=== PATIENT | male | born 1980 | race Caucasian/White ===

== ENCOUNTER 2019-10-10 21:08 | Inpatient (IN) ==
[2019-10-10] MEDS ORDERED: SODIUM CHLORIDE 0.9% 1000ML 1,000 ML IV ONE (21:17)
[2019-10-10] MEDS ORDERED: ONDANSETRON INJ 2 MG/ML 2 ML VIAL IV STA (21:17)
[2019-10-10] MEDS ORDERED: KETOROLAC TROMETHAMINE 15 MG/ML VIAL IV STA ×2 (21:17→23:44)
--- NOTE | 2019-10-10 21:27 | Emergency Department Note ---
History of Present Illness General Chief Complaint: Abdominal Pain Stated Complaint: ABD PAIN, FEVER Time Seen by Provider: 10/10/19 21:17 History of Present Illness Provider Complaint: abdominal pain Onset (ago): 3 day(s) Pain Consistency: constant Location: LLQ, RLQ and suprapubic Severity: moderate Maximum Pain Intensity: 5 Quality: + cramping, + stabbing, + aching, + fullness and + sharp Relieved By: + nothing Exacerbated By: + other (Coughing) Associated Symptoms: + fever (T-max one 1.7) and + constipation; no nausea, no vomiting, no dysuria, no hematemesis, no hematochezia, no melena and no hematuria Home Medications Home Medications Medication Instructions Recorded Confirmed Type ibuprofen [Motrin IB] 400 mg PO Q6H PRN 10/10/19 10/10/19 History Allergies Allergy/AdvReac Type Severity Reaction Status Date / Time No Known Allergies Allergy Unverified 10/10/19 23:07 Past Med/Surg History Medical History (Updated 10/10/19 @ 23:35 by Dereck Daniel) Kidney stone No pertinent family history Surgical History (Updated 10/10/19 @ 21:26 by Dereck Daniel) S/P hernia surgery Social History Preferred Language: Nigerien Feels Safe at Home: Yes Smoking Status: Current every day smoker Review of Systems A total of 10 systems reviewed and were otherwise negative Physical Exam Vital Signs: Vital Signs - 24 hr 10/10/19 21:11 10/10/19 22:43 Temperature 37.4 C Temperature Source Oral Pulse Rate 128 H Pulse Rate [Left F baldo] 95 H Respiratory Rate 18 20 Respiratory Effort / Characteristics Non-Labored Respiratory Depth Normal Respiratory Patter n Regular Blood Pressure 118/80 Blood Pressure [Le ft Arm] 126/75 Blood Pressure Hanh n 92 Blood Pressure Hanh n [Left Arm] 92 Pulse Oximetry 95 93 Oxygen Delivery Me thod Room Air Sepsis Recent Feve r Within 48 Hours No Sepsis Action Take n by Nursing No Action Required Physical Exam: Physical Exam GENERAL: He is oriented to person, place, and time. He appears well-developed and well-nourished. He does not appear distressed. HENT: Exam performed. - Head: Normocephalic and atraumatic. - Right Ear: External ear normal. No mastoid tenderness. - Left Ear: External ear normal. No mastoid tenderness. - Mouth/Throat: The oropharynx is clear and moist. No trismus in the jaw. No dental abscesses or uvula swelling. No oropharyngeal exudate or tonsillar abscesses. EYES: Conjunctivae and EOM are normal. Pupils are equal, round, and reactive to light. Right eye exhibits no discharge. Left eye exhibits no discharge. No scleral icterus. NECK: Normal range of motion. Neck supple. No JVD present. No spinous process tenderness present. No carotid bruit present. No rigidity. No tracheal deviation and normal range of motion present. No Brudzinski's sign and no Kernig's sign noted. CV: Normal rate, regular rhythm, normal heart sounds and intact distal pulses. There is no peripheral edema. Palpable radial pulses bue. PULM/CHEST: Effort normal and breath sounds normal. No respiratory distress. No stridor. He has no wheezes. He has no rales. - Chest Wall: He exhibits no tenderness. ABD: The abdomen is soft. Bowel sounds are normal. He has no distension. No mass is present. There is tenderness to palpation of the right lower quadrant. There is rebound, no guarding, no Farr's sign and tenderness at McBurney's point. Rovsig negative. MUSC/SKEL: Normal range of motion. There is no peripheral edema, tenderness or deformity. LYMPH: No cervical adenopathy. NEURO: He is alert and oriented to person, place, and time. He has normal strength. No cranial nerve deficit or sensory deficit. Coordination and gait normal. GCS eye subscore is 4. GCS verbal subscore is 5. GCS motor subscore is 6. Cerebellar tests wnl. SKIN: Skin is warm and dry. He is not diaphoretic. PSYCH: He has a normal mood and affect. Behavior is normal. Judgment and thought content normal. Course Course 2119: The patient was evaluated in room C8. A complete history and physical exam was performed. 2302: Vital signs stable. Labs show leukocytosis of 16.69. Imaging shows a normal appendix however it does show a perforated diverticulitis. Patient will be given Zosyn in the emergency department. General surgery was consulted. Spoke with Lorenzo Szymanski PA-C who states he will be down to evaluate the patient. 2334: Vital signs stable. Lorenzo Carrillo PA-C evaluated the patient for Dr. Wood. Surgery team is asking that the patient be admitted to medicine and they will be a consult. [facility]. Administered Medications Piperacillin Sod/Tazobactam Sod (Zosyn) 4.5 gm in 120 mls @ 30 mls/hr IV NOW ONE Stop: 10/11/19 02:56 Last Admin: 10/10/19 23:08 Dose: 30 mls/hr Documented by: [id number] Ioversol (Optiray 320 100ml) 94 ml IV ONCE PRN PRN Reason: Interaction Checking Stop: 10/14/19 22:21 Last Admin: 10/10/19 22:23 Dose: 94 ml Documented by: [id number] Discontinued Medications Sodium Chloride (Nss 1000ml) 1,000 mls @ 999 mls/hr IV .Q1H1M ONE Stop: 10/10/19 22:17 Last Infusion: 10/10/19 22:42 Dose: 0 mls/hr Documented by: [id number] Admin: 10/10/19 21:40 Dose: 999 mls/hr Documented by: [id number] Ketorolac Tromethamine (Toradol) 15 mg IV NOW STA Stop: 10/10/19 21:18 Last Admin: 10/10/19 21:40 Dose: 15 mg Documented by: [id number] Ondansetron HCl (Zofran) 4 mg IV NOW STA Stop: 10/10/19 21:18 Last Admin: 10/10/19 21:40 Dose: 4 mg Documented by: [id number] Medical Decision Making Laboratory Data Result diagrams: 10/10/19 21:33 10/10/19 21:33 Lab Results 10/10/19 10/10/19 Range/Units 21:33 21:33 WBC 16.69 H (4.8-10.8) K/uL RBC 5.09 (4.7-6.1) M/uL Hgb 15.7 (14.0-18.0) g/dL Hct 44.9 (42-52) % MCV 88.2 (80-100) fL MCH 30.8 (25-34) pg MCHC 35.0 (32-36) g/dL RDW Std Deviation 39.5 (36.4-46.3) fL RDW Coeff of Joseph 12.3 (11.5-14.5) % Plt Count 248 (130-400) K/uL MPV 9.6 (7.4-10.4) fL Immature Gran % (Auto) 0.3 % Neut % (Auto) 78.5 % Lymph % (Auto) 10.7 % [place] % (Auto) 9.6 % Eos % (Auto) 0.7 % Baso % (Auto) 0.2 % Immature Gran # (Auto) 0.05 H (0.00-0.02) K/uL Neut # (Auto) 13.10 H (1.4-6.5) K/uL Lymph # (Auto) 1.78 (1.2-3.4) K/uL [place] # (Auto) 1.60 H (0.11-0.59) K/uL Eos # (Auto) 0.12 (0-0.5) K/uL Baso # (Auto) 0.04 (0-0.2) K/uL Sodium 132 L (136-145) mmol/L Potassium 3.6 (3.5-5.1) mmol/L Chloride 100 (98-107) mmol/L Carbon Dioxide 21 (21-32) mmol/L Anion Gap 11.0 (3-11) BUN 13 (7-18) mg/dl Creatinine 1.08 (0.6-1.4) mg/dl Est Cr Clr Drug Dosing 107.7 ml/min Est GFR ( Amer) 100.4 Est GFR (Non-Af Amer) 86.6 BUN/Creatinine Ratio 11.8 (10-20) Glucose 107 H (70-99) mg/dl Calcium 9.6 (8.5-10.1) mg/dl Total Bilirubin 0.9 (0.2-1) mg/dl Direct Bilirubin 0.3 H (0-0.2) mg/dl AST 18 (15-37) U/L ALT 38 (12-78) U/L Alkaline Phosphatase 136 H (45-117) U/L Total Protein 8.6 H (6.4-8.2) gm/dl Albumin 3.9 (3.4-5.0) gm/dl Lipase 57 L (73-393) U/L Imaging Data Radiologist's Impression: CT OF THE ABDOMEN AND PELVIS WITH CONTRAST CLINICAL HISTORY: Right lower quadrant pain and fever. Constipation. Evaluate for acute appendicitis. COMPARISON STUDY: None. TECHNIQUE: Following IV administration of 94 mL of Optiray-320, axial images of the abdomen and pelvis were obtained from the lung bases to the proximal femurs. Images were reviewed in the axial, sagittal, and coronal planes. IV contrast was administered without complication. Automated exposure control was utilized for the study. A dose lowering technique was utilized adhering to the principles of ALARA. CT DOSE: 381.64 mGy.cm FINDINGS: Lung bases are unremarkable. No hepatic lesions are present. There is no biliary or pancreatic ductal dilatation. The spleen, adrenal glands and pancreas are normal. Note is made of a 1 cm hypodense lesion within the lower pole of the left kidney. This measures above water attenuation. There is also a 0.7 cm lesion within the lower pole of the right kidney on image 173 of 451. This is too small to characterize. There is no evidence for a bowel obstruction. Tiny appendicolith within the appendix is noted without evidence for acute appen dicitis. There is moderate wall thickening of the proximal sigmoid colon. An inflamed diverticulum is noted with moderate adjacent infiltration. Multiple locules of adjacent extraluminal gas are present. No fluid collection to suggest an abscess is present. Colonic diverticulosis is noted. Bowel is mildly fluid- filled. There are no suspicious osseous lesions. IMPRESSION: 1. Findings consistent with perforated acute sigmoid diverticulitis. Moderate inflammation with multiple locules of extraluminal gas consistent with a contained perforation. Moderate sigmoid colon wall thickening. 2. 1 cm hypodense lesion within the lower pole of the left kidney and a 0.7 cm lesion within the lower pole of the right kidney. These are too small to characterize on this exam. A follow-up MRI of the kidneys in 6 months is recommended. 3. No evidence for acute appendicitis. ACT 112: Negative or not required by law. Electronically signed by: Nick De Guzman M.D. 10/10/2019 10:54 PM Dictated: 10/10/192242 Transcribed: 10/10/192242 [facility] Narrative 2119: The patient was evaluated in room C8. A complete history and physical exam was performed. 2302: Vital signs stable. Labs show leukocytosis of 16.69. Imaging shows a normal appendix however it does show a perforated diverticulitis. Patient will be given Zosyn in the emergency department. General surgery was consulted. Spoke with Lorenzo Szymanski PA-C who states he will be down to evaluate the patient. 2335: Vital signs stable. Lorenzo Carrillo PA-C evaluated the patient for Dr. Ra baires. Surgery team is asking that the patient be admitted to medicine and they will be a consult. Dr. [facility] paged. Impression & Plan Diverticulitis of colon with perforation Discharge Plan Visit Data Chief Complaint: Abdominal Pain Stated Complaint: ABD PAIN, FEVER ED Provider: Dereck Danile Discharge Problem: Diverticulitis of colon with perforation Patient Disposition: Admitted As Inpatient Forms Stand Alone Forms: [facility] [employer] Prescriptions Prescriptions: No Action ibuprofen [Motrin IB] 200 mg Tablet 400 mg PO Q6H PRN (Reason: Pain) RF: 0 Referrals Referrals: PCP,NO [Primary Care Provider] - Discharge Problem: Diverticulitis of colon with perforation Qualifiers: Diverticulitis bleeding: unspecified bleeding status Qualified Code(s): K57.20 - Diverticulitis of large intestine with perforation and abscess without bleeding
[2019-10-10 21:43] LABS: Basophils # (auto) 0.04 K/uL (0-0.2); Basophils % (auto) 0.2 %; Eosinophils # (auto) 0.12 K/uL (0-0.5); Eosinophils % (auto) 0.7 %; Hematocrit (blood only) 44.9 % (42-52); Hemoglobin 15.7 g/dL (14.0-18.0); Immature Granulocytes # (auto) 0.05 K/uL (0.00-0.02); Immature Granulocytes % (auto) 0.3 %; Lymphocytes # (auto) 1.78 K/uL (1.2-3.4); Lymphocytes % (auto) 10.7 %; Mean Corpuscular Hemoglobin 30.8 pg (25-34); Mean Corpuscular Volume 88.2 fL (80-100); Mean Platelet Volume 9.6 fL (7.4-10.4); Monocytes % (auto) 9.6 %; Neutrophils % (auto) 78.5 %; Platelet Count 248 K/uL (130-400); RDW Coefficient of Variation 12.3 % (11.5-14.5); RDW Standard Deviation 39.5 fL (36.4-46.3); Red Blood Count 5.09 M/uL (4.7-6.1); White Blood Count 16.69 K/uL (4.8-10.8)
[2019-10-10 22:01] LABS: Albumin Level 3.9 gm/dl (3.4-5.0); BUN Creatinine Ratio 11.8 (10-20); Bilirubin Direct 0.3 mg/dl (0-0.2); Calcium 9.6 mg/dl (8.5-10.1); Creatinine Clr Calc Pharmacy 107.7 ml/min; Est GFR (African American) 100.4; Est GFR (Non-African American) 86.6; Potassium 3.6 mmol/L (3.5-5.1)
[2019-10-10 22:03] LABS: Bilirubin,Total 0.9 mg/dl (0.2-1); Total Protein 8.6 gm/dl (6.4-8.2)
[2019-10-10] MEDS ORDERED: IOVERSOL 100ml IV PRN (22:22)
--- NOTE | 2019-10-10 22:56 | CT Scan Report ---
CT OF THE ABDOMEN AND PELVIS WITH CONTRAST CLINICAL HISTORY: Right lower quadrant pain and fever. Constipation. Evaluate for acute appendicitis. COMPARISON STUDY: None. TECHNIQUE: Following IV administration of 94 mL of Optiray-320, axial images of the abdomen and pelvi s were obtained from the lung bases to the proximal femurs. Images were reviewed in the axial, sagitt al, and coronal planes. IV contrast was administered without complication. Automated exposure contro l was utilized for the study. A dose lowering technique was utilized adhering to the principles of A AUTUMN. CT DOSE: 381.64 mGy.cm FINDINGS: Lung bases are unremarkable. No hepatic lesions are present. There is no biliary or pancrea tic ductal dilatation. The spleen, adrenal glands and pancreas are normal. Note is made of a 1 cm hyp odense lesion within the lower pole of the left kidney. This measures above water attenuation. There is also a 0.7 cm lesion within the lower pole of the right kidney on image 173 of 451. This is too sm all to characterize. There is no evidence for a bowel obstruction. Tiny appendicolith within the appe ndix is noted without evidence for acute appendicitis. There is moderate wall thickening of the proxi mal sigmoid colon. An inflamed diverticulum is noted with moderate adjacent infiltration. Multiple lo cules of adjacent extraluminal gas are present. No fluid collection to suggest an abscess is present. Colonic diverticulosis is noted. Bowel is mildly fluid-filled. There are no suspicious osseous lesio ns. IMPRESSION: 1. Findings consistent with perforated acute sigmoid diverticulitis. Moderate inflammation with multi ple locules of extraluminal gas consistent with a contained perforation. Moderate sigmoid colon wall thickening. 2. 1 cm hypodense lesion within the lower pole of the left kidney and a 0.7 cm lesion within the lowe r pole of the right kidney. These are too small to characterize on this exam. A follow-up MRI of the kidneys in 6 months is recommended. 3. No evidence for acute appendicitis. ACT 112: Negative or not required by law. Electronically signed by: Nick De Guzman M.D. 10/10/2019 10:54 PM
[2019-10-10] MEDS ORDERED: PIPERACILL/TAZOBAC CONSULT ACTIVE PRN (22:57)
[2019-10-10] MEDS ORDERED: PIPERACILLIN/TAZOBACTAM 4.5 GM/120 ML BAG IV ONE (22:57)
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
[2019-10-11] MEDS ORDERED: HYDROmorphone INJ 0.5 MG/0.5 ML SYR IV STA (01:23)
[2019-10-11] MEDS: D5W AND NSS 1,000 ML IV SCH ×2 (01:39→09:45)
--- NOTE | 2019-10-11 02:25 | History and Physical Report ---
DATE OF ADMISSION: 10/11/2019 CHIEF COMPLAINT: Abdominal pain. HISTORY OF PRESENT ILLNESS: A 39-year-old male with no significant past medical history. Presents with abdominal pain, this has been ongoing since last Sunday. Feeling nauseous and it was not getting better. Today, he had some fever which prompted him to come to the ER. Last bowel movement was last Sunday. Currently resting comfortable and hemodynamically stable. Denies any chest pain. No cough. Had some headache today. No blurred visions, no earache, no runny nose, no sore throat, no difficulty swallowing. No shortness of breath. No rash, no swelling in the legs. Currently any ambulation is causing abdominal pain. Prior to that, he was climbing steps and ambulating fine. ALLERGIES: No known drug allergies. PAST MEDICAL HISTORY: None. PAST SURGICAL HISTORY: Inguinal surgery, nose surgery, knee surgery. MEDICATIONS: None. FAMILY HISTORY: The patient is with no recent family history. SOCIAL HISTORY: Smokes once in a while. Drinks alcohol once in a while. Denies any drug use. REVIEW OF SYSTEMS: As per HPI. Rest of review of systems negative. PHYSICAL EXAMINATION: GENERAL: The patient is of moderate build, not in acute distress. VITAL SIGNS: Temperature 37.4, pulse 95, respiratory rate 20, blood pressure 126/75, oxygen 93% on room air. HEENT: No pallor, no icterus. Pupils equal, round, reactive to light. NECK: No JVD, no neck masses. CARDIOVASCULAR: S1, S2 heard, regular rate and rhythm, no murmur, no gallop. RESPIRATORY SYSTEM: Normal AP diameter. No accessory muscle use. No wheezing, no crackles. ABDOMEN: Soft, bowel sounds present. No distention. Mild tenderness in the right and left lower quadrant. No guarding, no rigidity. CENTRAL NERVOUS SYSTEM: Cranial nerves II-XII grossly intact. Nonfocal. EXTREMITIES: No edema, no erythema. LABORATORY DATA: WBC 16.6, hemoglobin 15.7, hematocrit 44.9, platelets 248. Sodium 132, potassium 3.6, chloride 100, bicarbonate 21, BUN 13, creatinine 1.28, serum glucose 107, calcium 9.6, total bilirubin 0.9, direct bilirubin 0.3, AST 18, ALT 38, alkaline phosphatase 136. Lipase 57. IMAGING DATA: CT of the abdomen and pelvis with finding consistent with perforated acute sigmoid diverticulitis, moderate inflammation with multiple locules of extraluminal gas consistent with a contained perforation, moderate sigmoid colon wall thickening. A 1 cm hypodense lesion within the lower pole of the left kidney and 0.7 cm lesion within the lower pole of the right kidney. A followup MRI of the kidneys in 6 months is recommended. No evidence of acute appendicitis. ASSESSMENT AND PLAN: This is a 39-year-old male who presents with abdominal pain and found to have acute diverticulitis. 1. Acute diverticulitis, perforated sigmoid diverticulitis which is contained. Seen by surgery, recommended medical management. We will admit the patient to medical floor, n.p.o., IV fluids. Er started on Zosyn, which we will continue. Surgery consulted. Pain control. Antiemetics. 2. Bilateral kidney lesions, needs followup with PCP. 3. Deep venous thrombosis prophylaxis, sequential compression devices. DISPOSITION: Admit to medical floor. Expect to discharge home and follow with his family doctor. Level 1 full code. MTDD
[2019-10-11] MEDS: PIPERACILLIN/TAZOBACTAM 3.375 GM in DEXTROSE 5% 100 ML IV SCH ×3 (03:41→19:51)
[2019-10-11 07:17] LABS: Basophils # (auto) 0.03 K/uL (0-0.2); Basophils % (auto) 0.2 %; Eosinophils # (auto) 0.18 K/uL (0-0.5); Eosinophils % (auto) 1.4 %; Hematocrit (blood only) 37.6 % (42-52); Immature Granulocytes # (auto) 0.03 K/uL (0.00-0.02); Immature Granulocytes % (auto) 0.2 %; Lymphocytes % (auto) 13.7 %; Mean Corpuscular Hemoglobin 30.9 pg (25-34); Mean Corpuscular Hgb Conc 34.6 g/dL (32-36); Mean Corpuscular Volume 89.3 fL (80-100); Mean Platelet Volume 9.4 fL (7.4-10.4); Monocytes % (auto) 9.9 %; Neutrophils # (auto) 9.84 K/uL (1.4-6.5); Neutrophils % (auto) 74.6 %; Platelet Count 243 K/uL (130-400); RDW Coefficient of Variation 12.5 % (11.5-14.5); RDW Standard Deviation 40.2 fL (36.4-46.3); Red Blood Count 4.21 M/uL (4.7-6.1); White Blood Count 13.18 K/uL (4.8-10.8)
[2019-10-11] MEDS: HYDROmorphone INJ 0.5 MG/0.5 ML SYR IV PRN ×5 (07:37→21:59)
[2019-10-11 07:51] LABS: BUN Creatinine Ratio 12.6 (10-20); Calcium 8.2 mg/dl (8.5-10.1); Creatinine Clr Calc Pharmacy 97.9 ml/min; Est GFR (African American) 99.3; Est GFR (Non-African American) 85.6; Magnesium 2.3 mg/dl (1.8-2.4); Potassium 3.5 mmol/L (3.5-5.1)
[2019-10-11 07:55] LABS: Appearance Urine Clear (Clear); Bacteria Urine Automated Negative (Negative); Blood Urine Negative (Negative); Color Urine Dark Yellow; Glucose Urine UA Negative (Negative); Ketones Urine 1+ (Negative); Leukocyte Esterase Urine Negative (Negative); Nitrite Urine Negative (Negative); Protein Urine 1+ (Negative); RBC Urine Automated 0-4 /hpf (0-4); Specific Gravity Urine > 1.045 (1.000-1.030); Urobilinogen Urine Negative (Negative); pH Urine 5.5 (4.5-7.5)
--- NOTE | 2019-10-11 07:55 | Surgery Progress Note ---
Date of Service October 11, 2019 Assessment & Plan (1) Diverticulitis of colon with perforation: Hospital Day#1 acute sigmoid diverticulitis with contained perforation WBC 13 from 16 yesterday, patient afebrile Continue IV abx, on zosyn Continue IV pain meds as needed Okay for sips of water & ice, but do not advance diet further today Likely will require 3-4 days of IV abx in hospital Pt seen and examined with Dr. Ascencio Subjective Patient states he is not feeling too great, having an increase in abdominal pain this AM. Requesting prn pain medication. Denies nausea at this time. Physical Exam Physical Exam: awake/alert Gastrointestinal (Abdomen): Inspection/Auscultation: + abdomen distended (minimal) Percussion/Palpation: + abdomen tender (ttp lower abdomen) Results & Data Vital Signs (Past 12 Hours) Vital Signs Temp Pulse Pulse Resp BP BP Pulse Ox 10/11/19 07:14 36.6 C 73 20 100/56 L 95 10/11/19 01:20 36.7 C 82 20 113/71 95 10/11/19 00:59 92 H 18 120/63 95 10/10/19 22:43 95 H 20 126/75 93 10/10/19 21:11 37.4 C 128 H 18 118/80 95 PG Care Time/CCT Total # of Minutes Spent Total Time Spent with Patient: Total time spent is greater than 50% in coordination of care (as documented) at patient's floor/unit and/or counseling patient: Coding Level of Care Code 56842 Subseq Hosp Care Lvl 1 Diagnoses Diverticulitis of colon with perforation K57.20 Diverticulitis bleeding: unspecified bleeding status (1) Diverticulitis of colon with perforation Diverticulitis bleeding: unspecified bleeding status Qualified Code(s): K57.20 - Diverticulitis of large intestine with perforation and abscess without bleeding
[2019-10-11 08:04] LABS: Bilirubin Urine Negative (Negative); Ictotest Urine Negative (Negative)
[2019-10-11] MEDS: ACETAMINOPHEN 325 MG TAB PO PRN ×2 (09:01→15:03)
--- NOTE | 2019-10-11 09:53 | Hospitalist Progress Note ---
Date of Service October 11, 2019 Assessment & Plan (1) Diverticulitis of colon with perforation: Perforation of acute sigmoid diverticulitis with moderate sigmoid colonic wall thickening Has been on intravenous Zosyn White count has been improving and no more fever and/or chills Remains on n.p.o. Clinically minimal improvement Appreciate surgery input and recommendation Continue symptomatic management for now DVT prophylaxis We will start subcu heparin Admission and Anticipated Discharge Date Admission Date: October 11, 2019 Subjective 10/11/2019 The patient was seen and examined in medical floor He complains to have pain in lower abdomen which has not changed since admission Denies any fever and/or chills does not have any nausea and/or vomiting Review of Systems Review of Systems: All systems reviewed and are unremarkable except noted below Gastrointestinal: + abdominal pain and + bloating; no nausea and no vomiting Physical Exam Physical Exam: Lying in bed with abdominal pain Constitutional: well developed, well nourished and + acute distress; not ill appearing Eyes: PERRL, conjunctivae normal, anicteric sclerae ENMT: external ear and nose normal, oropharynx normal Neck: trachea midline, no thyromegaly Respiratory: normal respiratory effort; no respiratory distress Cardiovascular: Rate/Rhythm: regular rate and regular rhythm Heart Sounds: no murmur Gastrointestinal (Abdomen): Inspection/Auscultation: + abdomen distended (Mildly distended) and normal bowel sounds (Decreased) Percussion/Palpation: + abdomen tender (Lower quadrants with minimal guarding and rebound) Musculoskeletal: No acute arthritis in any joints Neurologic: moves all extremities; no focal motor deficits Results & Data Results & Data ([facility]) Vital Signs (Past 12 Hours) Vital Signs Temp Pulse Resp BP Pulse Ox 10/11/19 07:14 36.6 C 73 20 100/56 L 95 10/11/19 01:20 36.7 C 82 20 113/71 95 10/11/19 00:59 92 H 18 120/63 95 10/10/19 22:43 95 H 20 126/75 93 Laboratory Results Short CBC 10/10/19 10/11/19 Range/Units 21:33 06:51 WBC 16.69 H 13.18 H (4.8-10.8) K/uL Hgb 15.7 13.0 L (14.0-18.0) g/dL Hct 44.9 37.6 L (42-52) % Plt Count 248 243 (130-400) K/uL BMP 10/10/19 10/11/19 21:33 06:51 Sodium 132 L 135 L Potassium 3.6 3.5 Chloride 100 103 Carbon Dioxide 21 26 BUN 13 14 Creatinine 1.08 1.09 Glucose 107 H 112 H Calcium 9.6 8.2 L Liver Function 10/10/19 Range/Units 21:33 Total Bilirubin 0.9 (0.2-1) mg/dl Direct Bilirubin 0.3 H (0-0.2) mg/dl AST 18 (15-37) U/L ALT 38 (12-78) U/L Alkaline Phosphatase 136 H (45-117) U/L Albumin 3.9 (3.4-5.0) gm/dl Urine 10/11/19 Range/Units 07:48 Urine Color Dark Yellow Urine Appearance Clear (Clear) Urine pH 5.5 (4.5-7.5) Ur Specific [place] > 1.045 H (1.000-1.030) Urine Protein 1+ H (Negative) Urine Glucose (UA) Negative (Negative) Medications Administered Current Inpatient Medications Acetaminophen (Tylenol) 650 mg PO Q4H PRN PRN Reason: pain/fever Stop: 11/10/19 01:22 Last Admin: 10/11/19 09:01 Dose: 650 mg Documented by: Hydromorphone HCl (Dilaudid) 0.5 mg IV Q3H PRN PRN Reason: Pain Stop: 10/25/19 01:22 Last Admin: 10/11/19 07:37 Dose: 0.5 mg Documented by: Dextrose/Sodium Chloride (D5w And Nss) 1,000 mls @ 125 mls/hr IV .Q8H [facility] Stop: 11/10/19 01:22 Last Admin: 10/11/19 09:45 Dose: 125 mls/hr Documented by: Piperacillin Sod/Tazobactam (Sod 3.375 gm/ Dextrose) 115 mls @ 28.75 mls/hr IV Q8H [facility]; Protocol Stop: 10/21/19 03:59 Last Infusion: 10/11/19 08:37 Dose: Infused Documented by: Miscellaneous Information (Consult) 1 ea N/A UD PRN PRN Reason: Consult Stop: 11/09/19 22:56 Ondansetron HCl (Zofran) 4 mg IV Q6H PRN PRN Reason: Nausea Stop: 11/10/19 01:22 (1) Diverticulitis of colon with perforation Diverticulitis bleeding: unspecified bleeding status Qualified Code(s): K57.20 - Diverticulitis of large intestine with perforation and abscess without bleeding
[2019-10-11] MEDS: D5NSS + 20MEQ KCL 20 MEQ/1,000 ML BAG IV SCH ×2 (10:37→18:35)
[2019-10-11] MEDS: HEPARIN SOD 5,000 UNIT/0.5 ML VIAL SQ SCH (20:56)
[2019-10-12] MEDS: HYDROmorphone INJ 0.5 MG/0.5 ML SYR IV PRN ×5 (02:20→19:05)
[2019-10-12] MEDS: D5NSS + 20MEQ KCL 20 MEQ/1,000 ML BAG IV SCH ×3 (02:21→18:39)
[2019-10-12] MEDS: PIPERACILLIN/TAZOBACTAM 3.375 GM in DEXTROSE 5% 100 ML IV SCH ×3 (04:10→20:35)
[2019-10-12 04:39] LABS: Basophils # (auto) 0.03 K/uL (0-0.2); Basophils % (auto) 0.2 %; Eosinophils % (auto) 1.4 %; Hemoglobin 13.1 g/dL (14.0-18.0); Immature Granulocytes # (auto) 0.05 K/uL (0.00-0.02); Immature Granulocytes % (auto) 0.4 %; Lymphocytes # (auto) 3.13 K/uL (1.2-3.4); Mean Corpuscular Hemoglobin 30.5 pg (25-34); Mean Corpuscular Hgb Conc 33.6 g/dL (32-36); Mean Corpuscular Volume 90.7 fL (80-100); Mean Platelet Volume 9.2 fL (7.4-10.4); Monocytes # (auto) 1.26 K/uL (0.11-0.59); Monocytes % (auto) 8.9 %; Neutrophils # (auto) 9.56 K/uL (1.4-6.5); Neutrophils % (auto) 67.1 %; Platelet Count 264 K/uL (130-400); RDW Coefficient of Variation 12.2 % (11.5-14.5); RDW Standard Deviation 40.8 fL (36.4-46.3); White Blood Count 14.23 K/uL (4.8-10.8)
[2019-10-12 05:17] LABS: BUN Creatinine Ratio 4.5 (10-20); Calcium 8.6 mg/dl (8.5-10.1); Creatinine Clr Calc Pharmacy 107.8 ml/min; Est GFR (African American) 111.5; Est GFR (Non-African American) 96.2; Magnesium 2.4 mg/dl (1.8-2.4); Potassium 4.4 mmol/L (3.5-5.1)
[2019-10-12] MEDS: ACETAMINOPHEN 325 MG TAB PO PRN ×2 (07:31→17:08)
[2019-10-12] MEDS: HEPARIN SOD 5,000 UNIT/0.5 ML VIAL SQ SCH ×2 (07:48→20:37)
--- NOTE | 2019-10-12 08:07 | Surgery Progress Note ---
Date of Service October 12, 2019 Assessment & Plan (1) Diverticulitis of colon with perforation: Improving WBC 14 can start clears, will advance slowly seen with Dr. Ascencio continue Zosyn 1-2 more days Subjective feeling better, no BM Physical Exam Gastrointestinal (Abdomen): Percussion/Palpation: + abdomen tender (improved) and abdomen soft Results & Data Vital Signs (Past 12 Hours) Vital Signs Temp Pulse Resp BP Pulse Ox 10/12/19 07:15 37 C 76 18 118/75 93 10/11/19 23:20 37.4 C 75 20 109/69 94 PG Care Time/CCT Total # of Minutes Spent Total Time Spent with Patient: Total time spent is greater than 50% in coordination of care (as documented) at patient's floor/unit and/or counseling patient: Coding Level of Care Code 57859 Subseq Hosp Care Lvl 1 Diagnoses Diverticulitis of colon with perforation K57.20 Diverticulitis bleeding: unspecified bleeding status (1) Diverticulitis of colon with perforation Diverticulitis bleeding: unspecified bleeding status Qualified Code(s): K57.20 - Diverticulitis of large intestine with perforation and abscess without bleeding
--- NOTE | 2019-10-12 11:18 | Hospitalist Progress Note ---
Date of Service October 12, 2019 Assessment & Plan (1) Diverticulitis of colon with perforation: Perforation of acute sigmoid diverticulitis with moderate sigmoid colonic wall thickening Has been on intravenous Zosyn White count has been improving and no more fever and/or chills Remains on n.p.o. Clinically minimal improvement Appreciate surgery input and recommendation Continue symptomatic management for now Clinically minimally improved Bowel moved and started on clears orally Advised increased ambulation DVT prophylaxis We will start subcu heparin Admission and Anticipated Discharge Date Admission Date: October 11, 2019 Subjective 10/11/2019 The patient was seen and examined in medical floor He complains to have pain in lower abdomen which has not changed since admission Denies any fever and/or chills does not have any nausea and/or vomiting 10/12/2019 Patient was seen and examined in medical floor He feels a little bit better today Bowel is moved which is loose Abdominal pain is little bit better today and no fever no chills Review of Systems Review of Systems: All systems reviewed and are unremarkable except noted below Gastrointestinal: + abdominal pain and + bloating; no nausea and no vomiting Physical Exam Physical Exam: Lying in bed with abdominal pain Constitutional: well developed, well nourished and + acute distress; not ill appearing Eyes: PERRL, conjunctivae normal, anicteric sclerae ENMT: external ear and nose normal, oropharynx normal Neck: trachea midline, no thyromegaly Respiratory: normal respiratory effort; no respiratory distress Cardiovascular: Rate/Rhythm: regular rate and regular rhythm Heart Sounds: no murmur Gastrointestinal (Abdomen): Inspection/Auscultation: + abdomen distended (Mildly distended) and normal bowel sounds (Decreased) Percussion/Palpation: + abdomen tender (Lower quadrants with minimal guarding and rebound) and abdomen soft Neurologic: moves all extremities; no focal motor deficits Results & Data Results & Data ([facility]) Vital Signs (Past 12 Hours) Vital Signs Temp Pulse Resp BP Pulse Ox 10/12/19 07:15 37 C 76 18 118/75 93 10/11/19 23:20 37.4 C 75 20 109/69 94 Laboratory Results Short CBC 10/12/19 Range/Units 04:23 WBC 14.23 H (4.8-10.8) K/uL Hgb 13.1 L (14.0-18.0) g/dL Hct 39.0 L (42-52) % Plt Count 264 (130-400) K/uL BMP 10/12/19 04:23 Sodium 139 Potassium 4.4 D Chloride 109 H Carbon Dioxide 27 BUN 4 L D Creatinine 0.99 Glucose 109 H Calcium 8.6 Medications Administered Current Inpatient Medications Acetaminophen (Tylenol) 650 mg PO Q4H PRN PRN Reason: pain/fever Stop: 11/10/19 01:22 Last Admin: 10/12/19 07:31 Dose: 650 mg Documented by: Heparin Sodium (Porcine) (Heparin Sodium (Porcine)) 5,000 units SQ Q12 REJI Stop: 11/10/19 20:59 Last Admin: 10/12/19 07:48 Dose: Not Given Documented by: Hydromorphone HCl (Dilaudid) 0.5 mg IV Q3H PRN PRN Reason: Pain Stop: 10/25/19 01:22 Last Admin: 10/12/19 08:38 Dose: 0.5 mg Documented by: Piperacillin Sod/Tazobactam (Sod 3.375 gm/ Dextrose) 115 mls @ 28.75 mls/hr IV Q8H [facility]; Protocol Stop: 10/21/19 03:59 Last Infusion: 10/12/19 07:36 Dose: Infused Documented by: Potassium Chloride/Dextrose/Sod Cl (D5nss + 20meq Kcl) 20 meq in 1,000 mls @ 125 mls/hr IV .Q8H [facility] Stop: 10/13/19 09:59 Last Admin: 10/12/19 10:23 Dose: 125 mls/hr Documented by: Miscellaneous Information (Consult) 1 ea N/A UD PRN PRN Reason: Consult Stop: 11/09/19 22:56 Ondansetron HCl (Zofran) 4 mg IV Q6H PRN PRN Reason: Nausea Stop: 11/10/19 01:22 (1) Diverticulitis of colon with perforation Diverticulitis bleeding: unspecified bleeding status Qualified Code(s): K57.20 - Diverticulitis of large intestine with perforation and abscess without bleeding
[2019-10-12] MEDS: OXYCODONE/ACETAMINOPHEN 5mg/325mg TAB PO PRN (12:19)
[2019-10-12] MEDS: ONDANSETRON INJ 2 MG/ML 2 ML VIAL IV PRN ×2 (12:20→18:39)
[2019-10-13] MEDS: D5NSS + 20MEQ KCL 20 MEQ/1,000 ML BAG IV SCH (02:51)
[2019-10-13] MEDS: PIPERACILLIN/TAZOBACTAM 3.375 GM in DEXTROSE 5% 100 ML IV SCH ×3 (04:49→20:15)
[2019-10-13] MEDS: ONDANSETRON INJ 2 MG/ML 2 ML VIAL IV PRN ×3 (05:03→20:12)
[2019-10-13 05:14] LABS: Basophils # (auto) 0.03 K/uL (0-0.2); Basophils % (auto) 0.3 %; Eosinophils # (auto) 0.35 K/uL (0-0.5); Eosinophils % (auto) 3.2 %; Hematocrit (blood only) 36.4 % (42-52); Hemoglobin 12.4 g/dL (14.0-18.0); Immature Granulocytes # (auto) 0.02 K/uL (0.00-0.02); Immature Granulocytes % (auto) 0.2 %; Lymphocytes % (auto) 19.4 %; Mean Corpuscular Hemoglobin 30.6 pg (25-34); Mean Corpuscular Hgb Conc 34.1 g/dL (32-36); Mean Corpuscular Volume 89.9 fL (80-100); Mean Platelet Volume 9.5 fL (7.4-10.4); Monocytes # (auto) 0.96 K/uL (0.11-0.59); Monocytes % (auto) 8.9 %; Neutrophils # (auto) 7.35 K/uL (1.4-6.5); Platelet Count 279 K/uL (130-400); RDW Coefficient of Variation 12.2 % (11.5-14.5); RDW Standard Deviation 39.8 fL (36.4-46.3); Red Blood Count 4.05 M/uL (4.7-6.1); White Blood Count 10.81 K/uL (4.8-10.8)
[2019-10-13] MEDS: OXYCODONE/ACETAMINOPHEN 5mg/325mg TAB PO PRN ×5 (05:22→22:00)
[2019-10-13 05:37] LABS: BUN Creatinine Ratio 3.1 (10-20); Calcium 8.4 mg/dl (8.5-10.1); Creatinine Clr Calc Pharmacy 114.7 ml/min; Est GFR (African American) 120.3; Est GFR (Non-African American) 103.8; Magnesium 2.1 mg/dl (1.8-2.4); Potassium 4.1 mmol/L (3.5-5.1)
--- NOTE | 2019-10-13 08:24 | Surgery Progress Note ---
Date of Service October 13, 2019 Assessment & Plan (1) Diverticulitis of colon with perforation: improving WBC 10,000 full liquids keep on IV abx another [address] Ascencio Subjective bowels moving, doesn't like clear liquid selection Physical Exam Gastrointestinal (Abdomen): Percussion/Palpation: + abdomen tender (less) and abdomen soft Results & Data Vital Signs (Past 12 Hours) Vital Signs Temp Pulse Resp BP Pulse Ox 10/13/19 07:31 36.8 C 50 L 16 112/68 95 10/12/19 23:20 36.8 C 63 16 129/75 95 PG Care Time/CCT Total # of Minutes Spent Total Time Spent with Patient: Total time spent is greater than 50% in coordination of care (as documented) at patient's floor/unit and/or counseling patient: Coding Level of Care Code 21990 Subseq Hosp Care Lvl 1 Diagnoses Diverticulitis of colon with perforation K57.20 Diverticulitis bleeding: unspecified bleeding status (1) Diverticulitis of colon with perforation Diverticulitis bleeding: unspecified bleeding status Qualified Code(s): K57.20 - Diverticulitis of large intestine with perforation and abscess without bleeding
[2019-10-13] MEDS: HEPARIN SOD 5,000 UNIT/0.5 ML VIAL SQ SCH ×2 (08:53→20:20)
--- NOTE | 2019-10-13 12:38 | Hospitalist Progress Note ---
Date of Service October 13, 2019 Assessment & Plan (1) Diverticulitis of colon with perforation: Perforation of acute sigmoid diverticulitis with moderate sigmoid colonic wall thickening Has been on intravenous Zosyn White count has been improving and no more fever and/or chills Remains on n.p.o. Clinically minimal improvement Appreciate surgery input and recommendation Continue symptomatic management for now Has been tolerating clears orally Symptomatically much improved with normalization of the white count Advised more ambulation Likely go home tomorrow DVT prophylaxis We will start subcu heparin Admission and Anticipated Discharge Date Admission Date: October 11, 2019 Subjective 10/11/2019 The patient was seen and examined in medical floor He complains to have pain in lower abdomen which has not changed since admission Denies any fever and/or chills does not have any nausea and/or vomiting 10/12/2019 Patient was seen and examined in medical floor He feels a little bit better today Bowel is moved which is loose Abdominal pain is little bit better today and no fever no chills 10/13/2019 The patient was seen and examined in medical floor He has been doing much better today with decreasing abdominal pain, no nausea and or vomiting Bowel has moved Has been tolerating clears Review of Systems Review of Systems: All systems reviewed and are unremarkable except noted below Gastrointestinal: + abdominal pain (Much improved); no bloating, no nausea and no vomiting Physical Exam Physical Exam: Lying in bed comfortably Constitutional: well developed, well nourished and + acute distress; not ill appearing Eyes: PERRL, conjunctivae normal, anicteric sclerae ENMT: external ear and nose normal, oropharynx normal Neck: trachea midline, no thyromegaly Respiratory: normal respiratory effort; no respiratory distress Cardiovascular: Rate/Rhythm: regular rate and regular rhythm Heart Sounds: no murmur Gastrointestinal (Abdomen): Inspection/Auscultation: abdomen not distended Percussion/Palpation: + abdomen tender (Minimally tender lower quadrants) and abdomen soft Musculoskeletal: No acute arthritis in any Neurologic: moves all extremities; no focal motor deficits Results & Data Results & Data ([facility]) Vital Signs (Past 12 Hours) Vital Signs Temp Pulse Resp BP Pulse Ox 10/13/19 07:31 36.8 C 50 L 16 112/68 95 Laboratory Results Short CBC 10/13/19 Range/Units 04:34 WBC 10.81 H (4.8-10.8) K/uL Hgb 12.4 L (14.0-18.0) g/dL Hct 36.4 L (42-52) % Plt Count 279 (130-400) K/uL BMP 10/13/19 04:34 Sodium 138 Potassium 4.1 Chloride 107 Carbon Dioxide 26 BUN 3 L Creatinine 0.93 Glucose 103 H Calcium 8.4 L Medications Administered Current Inpatient Medications Acetaminophen (Tylenol) 650 mg PO Q4H PRN PRN Reason: pain/fever Stop: 11/10/19 01:22 Last Admin: 10/12/19 17:08 Dose: 650 mg Documented by: Heparin Sodium (Porcine) (Heparin Sodium (Porcine)) 5,000 units SQ Q12 [facility] Stop: 11/10/19 20:59 Last Admin: 10/13/19 08:53 Dose: Not Given Documented by: Hydromorphone HCl (Dilaudid) 0.5 mg IV Q3H PRN PRN Reason: Pain Stop: 10/25/19 01:22 Last Admin: 10/12/19 19:05 Dose: 0.5 mg Documented by: Piperacillin Sod/Tazobactam (Sod 3.375 gm/ Dextrose) 115 mls @ 28.75 mls/hr IV Q8H [facility]; Protocol Stop: 10/21/19 03:59 Last Infusion: 10/13/19 08:51 Dose: Infused Documented by: Miscellaneous Information (Consult) 1 ea N/A UD PRN PRN Reason: Consult Stop: 11/09/19 22:56 Ondansetron HCl (Zofran) 4 mg IV Q6H PRN PRN Reason: Nausea Stop: 11/10/19 01:22 Last Admin: 10/13/19 05:03 Dose: 4 mg Documented by: Oxycodone/Acetaminophen (Percocet 5mg/325mg) 1 tab PO Q4H PRN PRN Reason: Pain Stop: 10/26/19 11:31 Last Admin: 10/13/19 09:42 Dose: 1 tab Documented by: (1) Diverticulitis of colon with perforation Diverticulitis bleeding: unspecified bleeding status Qualified Code(s): K57.20 - Diverticulitis of large intestine with perforation and abscess without bleeding
[2019-10-14] MEDS: PIPERACILLIN/TAZOBACTAM 3.375 GM in DEXTROSE 5% 100 ML IV SCH (03:19)
[2019-10-14] MEDS: ONDANSETRON INJ 2 MG/ML 2 ML VIAL IV PRN (05:44)
[2019-10-14] MEDS: OXYCODONE/ACETAMINOPHEN 5mg/325mg TAB PO PRN ×2 (05:44→10:22)
[2019-10-14 06:26] LABS: Hematocrit (blood only) 38.6 % (42-52); Hemoglobin 13.5 g/dL (14.0-18.0); Mean Corpuscular Hemoglobin 31.4 pg (25-34); Mean Corpuscular Volume 89.8 fL (80-100); Mean Platelet Volume 9.3 fL (7.4-10.4); Platelet Count 321 K/uL (130-400); RDW Coefficient of Variation 12.1 % (11.5-14.5); RDW Standard Deviation 39.4 fL (36.4-46.3); White Blood Count 9.39 K/uL (4.8-10.8)
[2019-10-14 07:28] VITALS: BP 112/73; PULSE 68; TEMP 98.8; O2SAT 93
--- NOTE | 2019-10-14 09:00 | Surgery Progress Note ---
Date of Service October 14, 2019 Assessment & Plan (1) Diverticulitis of colon with perforation: Patient clinically improving WBC 9.3, and afebrile Okay for discharge from surgical standpoint. May advance to low fiber diet. Once patient's stools normalize he may add fiber back into his diet. Complete a full course of abx, should be switched to po upon discharge Should be set up with GI appointment in 6 wks to discuss follow up and colonoscopy Should not need much narcotic at dispo, okay to take ibuprofen and tylenol prn Pt seen and examined with Dr. Ascencio Subjective Patient feeling better each day. Has some mild abdominal discomfort, but is much improved. + BM's and tolerating liquid diet. Had a bout of nausea yesterday, requiring anti-emetics. Physical Exam Physical Exam: awake/alert Gastrointestinal (Abdomen): Inspection/Auscultation: abdomen not distended Percussion/Palpation: + abdomen tender (mild discomfort to palption in lower abdomen) and abdomen soft Results & Data Vital Signs (Past 12 Hours) Vital Signs Temp Pulse Resp BP Pulse Ox 10/14/19 07:27 37.1 C 68 20 112/73 93 10/13/19 23:05 36.9 C 51 L 16 108/71 96 PG Care Time/CCT Total # of Minutes Spent Total Time Spent with Patient: Total time spent is greater than 50% in coordin ation of care (as documented) at patient's floor/unit and/or counseling patient: Coding Level of Care Code 19349 Subseq Hosp Care Lvl 1 Diagnoses Diverticulitis of colon with perforation K57.20 Diverticulitis bleeding: unspecified bleeding status (1) Diverticulitis of colon with perforation Diverticulitis bleeding: unspecified bleeding status Qualified Code(s): K57.20 - Diverticulitis of large intestine with perforation and abscess without bleeding
[2019-10-14] MEDS: HEPARIN SOD 5,000 UNIT/0.5 ML VIAL SQ SCH (09:11)
[2019-10-14] MEDS ORDERED: CIPROFLOXACIN 500 MG TAB PO SCH (10:15)
[2019-10-14] MEDS ORDERED: metroNIDAZOLE 500 MG TAB PO SCH (10:15)
--- NOTE | 2019-10-14 10:15 | Hospitalist Progress Note ---
Date of Service October 14, 2019 Assessment & Plan (1) Diverticulitis of colon with perforation: Perforation of acute sigmoid diverticulitis with moderate sigmoid colonic wall thickening Has been on intravenous Zosyn White count has been improving and no more fever and/or chills Remains on n.p.o. Clinically minimal improvement Appreciate surgery input and recommendation Continue symptomatic management for now Has been tolerating clears orally and tolerating advanced diet We will continue with low fiber diet on discharge White count is normalized and no signs of infection Clinically much improved and has been ambulating without any difficulty We will give antibiotic to finish a course of 10 days in total PCP appointment as an outpatient and GI appointment as an outpatient Minimal narcotics on discharge DVT prophylaxis We will start subcu heparin Admission and Anticipated Discharge Date Admission Date: October 11, 2019 Subjective 10/11/2019 The patient was seen and examined in medical floor He complains to have pain in lower abdomen which has not changed since admission Denies any fever and/or chills does not have any nausea and/or vomiting 10/12/2019 Patient was seen and examined in medical floor He feels a little bit better today Bowel is moved which is loose Abdominal pain is little bit better today and no fever no chills 10/13/2019 The patient was seen and examined in medical floor He has been doing much better today with decreasing abdominal pain, no nausea and or vomiting Bowel has moved Has been tolerating clears 10/14/2019 The patient was seen and examined in medical floor He has been feeling a lot better with minimal and lower abdominal pain in the hypogastric area Bowel movement yesterday Has been ambulating without any difficulty Was seen by surgeon and advised discharge Review of Systems Review of Systems: All systems reviewed and are unremarkable except noted below Gastrointestinal: + abdominal pain (Much improved); no bloating, no nausea and no vomiting Physical Exam Physical Exam: Lying in bed comfortably but anxious Constitutional: well developed, well nourished and + acute distress; not ill appearing Eyes: PERRL, conjunctivae normal, anicteric sclerae ENMT: external ear and nose normal, oropharynx normal Neck: trachea midline, no thyromegaly Respiratory: normal respiratory effort; no respiratory distress Cardiovascular: Rate/Rhythm: regular rate and regular rhythm Heart Sounds: no murmur Gastrointestinal (Abdomen): Inspection/Auscultation: abdomen not distended Percussion/Palpation: + abdomen tender (Minimal tenderness in hypogastric area) and abdomen soft Musculoskeletal: No acute arthritis in any joints Neurologic: moves all extremities; no focal motor deficits Results & Data Results & Data ([facility]) Vital Signs (Past 12 Hours) Vital Signs Temp Pulse Resp BP Pulse Ox 10/14/19 07:27 37.1 C 68 20 112/73 93 10/13/19 23:05 36.9 C 51 L 16 108/71 96 Laboratory Results Short CBC 10/14/19 Range/Units 06:07 WBC 9.39 (4.8-10.8) K/uL Hgb 13.5 L (14.0-18.0) g/dL Hct 38.6 L (42-52) % Plt Count 321 (130-400) K/uL Medications Administered Current Inpatient Medications Acetaminophen (Tylenol) 650 mg PO Q4H PRN PRN Reason: pain/fever Stop: 11/10/19 01:22 Last Admin: 10/12/19 17:08 Dose: 650 mg Documented by: Ciprofloxacin (Cipro) 500 mg PO BID [facility] Stop: 10/24/19 10:14 Heparin Sodium (Porcine) (Heparin Sodium (Porcine)) 5,000 units SQ Q12 [facility] Stop: 11/10/19 20:59 Last Admin: 10/14/19 09:11 Dose: Not Given Documented by: Hydromorphone HCl (Dilaudid) 0.5 mg IV Q3H PRN PRN Reason: Pain Stop: 10/25/19 01:22 Last Admin: 10/12/19 19:05 Dose: 0.5 mg Documented by: Metronidazole (Flagyl) 500 mg PO BID [facility] Stop: 10/24/19 10:14 Ondansetron HCl (Zofran) 4 mg IV Q6H PRN PRN Reason: Nausea Stop: 11/10/19 01:22 Last Admin: 10/14/19 05:44 Dose: 4 mg Documented by: Oxycodone/Acetaminophen (Percocet 5mg/325mg) 1 tab PO Q4H PRN PRN Reason: Pain Stop: 10/26/19 11:31 Last Admin: 10/14/19 05:44 Dose: 1 tab Documented by: (1) Diverticulitis of colon with perforation Diverticulitis bleeding: unspecified bleeding status Qualified Code(s): K57.20 - Diverticulitis of large intestine with perforation and abscess without bleeding
--- NOTE | 2019-10-14 19:35 | Discharge Summary ---
Date of Service October 14, 2019 Admission HPI Per Admitting Provider DICTATED BY: Samuel Montiel MD DATE OF ADMISSION: 10/11/2019 CHIEF COMPLAINT: Abdominal pain. HISTORY OF PRESENT ILLNESS: A 39-year-old male with no significant past medical history. Presents with abdominal pain, this has been ongoing since last Sunday. Feeling nauseous and it was not getting better. Today, he had some fever which prompted him to come to the ER. Last bowel movement was last Sunday. Currently resting comfortable and hemodynamically stable. Denies any chest pain. No cough. Had some headache today. No blurred visions, no earache, no runny nose, no sore throat, no difficulty swallowing. No shortness of breath. No rash, no swelling in the legs. Currently any ambulation is causing abdominal pain. Prior to that, he was climbing steps and ambulating fine. Admission Exam Per Admitting Provider GENERAL: The patient is of moderate build, not in acute distress. VITAL SIGNS: Temperature 37.4, pulse 95, respiratory rate 20, blood pressure 126/75, oxygen 93% on room air. HEENT: No pallor, no icterus. Pupils equal, round, reactive to light. NECK: No JVD, no neck masses. CARDIOVASCULAR: S1, S2 heard, regular rate and rhythm, no murmur, no gallop. RESPIRATORY SYSTEM: Normal AP diameter. No accessory muscle use. No wheezing, no crackles. ABDOMEN: Soft, bowel sounds present. No distention. Mild tenderness in the right and left lower quadrant. No guarding, no rigidity. CENTRAL NERVOUS SYSTEM: Cranial nerves II-XII grossly intact. Nonfocal. EXTREMITIES: No edema, no erythema. Principal Diagnosis Sigmoid diverticulitis with perforation-improved with conservative management,\ Discharge Exam Constitutional well developed, well nourished and + acute distress; not ill appearing Eyes PERRL, conjunctivae normal, anicteric sclerae ENMT external ear and nose normal, oropharynx normal Neck trachea midline, no thyromegaly Respiratory normal respiratory effort; no respiratory distress Cardiovascular Rate/Rhythm: regular rate and regular rhythm Heart Sounds: no murmur Gastrointestinal (Abdomen) Inspection/Auscultation: abdomen not distended Percussion/Palpation: + abdomen tender (Minimal tenderness in hypogastric area) and abdomen soft Neurologic moves all extremities; no focal motor deficits Discharge Data Allergies Allergy/AdvReac Type Severity Reaction Status Date / Time No Known Allergies Allergy Unverified 10/10/19 23:07 Consultations 10/10/19 23:02 Consult General Surgery Stat 10/10/19 23:34 ED Decision to Admit Stat 10/13/19 13:30 Burn CD for patient Routine Ordered Studies 10/10/19 21:24 CT abd pelvis IV con only Stat Hospital Course (1) Diverticulitis of colon with perforation: Perforation of acute sigmoid diverticulitis with moderate sigmoid colonic wall thickening Has been on intravenous Zosyn White count has been improving and no more fever and/or chills Remains on n.p.o. Clinically minimal improvement Appreciate surgery input and recommendation Continue symptomatic management for now Has been tolerating clears orally and tolerating advanced diet We will continue with low fiber diet on discharge White count is normalized and no signs of infection Clinically much improved and has been ambulating without any difficulty We will give antibiotic to finish a course of 10 days in total PCP appointment as an outpatient and GI appointment as an outpatient Minimal narcotics on discharge DVT prophylaxis We will start subcu heparin Total Time Total Time Spent Total Time Spent (In Minutes): 35 minutes Total Time Includes: Examination of the Patient, Discharge Planning, Medication Reconciliation and Communication With Other Providers Discharge Plan Discharge Items Patient Disposition: Home - Self-Care Reason For Visit: ABD PAIN Discharge Diagnosis: Sigmoid diverticulitis with perforation-improved with conservative management,\ Condition on Discharge: Good Activity: Resume your previous activity Non-emergency contact: Primary Care Provider Call non-emergency contact if: you have any medication questions and your symptoms worsen Follow-up/Referrals: [email or web address] [Primary Care Provider] - 10/20/19 12:00 pm (Your appointment is with Dr. Garibay at [facility]. [facility] is closed now. Please ask for a GI appointment within 6 weeks to undergo possible colonoscopy.) Diet: Low Fiber Addtl Attending Provider Instructions: Please take it easy until that is finished. No strenuous exercise and or weightlifting for this timeframe. Can have fiber-containing laxatives when bowel which is normal. Addtl Meat Butcher Provider Instructions: Incidental findings on CAT scan:1 cm hypodense lesion within the lower pole of the left kidney and a 0.7 cm lesion within the lower pole of the right kidney. These are too small to characterize on this exam. A follow-up MRI of the kidneys in 6 months is recommended. Please get an MRI as advised within 6-month through your PCP. Pending Studies at Discharge: No Stand-Alone Forms: [facility], Smoking Cessation Medications and DC Order Prescriptions: New metronidazole 500 mg Tablet 500 mg PO BID 10 Days Qty: 20 RF: 0 ciprofloxacin HCl 500 mg Tablet 500 mg PO BID 10 Days Qty: 20 RF: 0 oxycodone-acetaminophen [Percocet] 5-325 mg Tablet 1 tab PO Q6HWA PRN (Reason: pain) Qty: 10 RF: 0 Lactinex 1 million cell tablet,chewable 1 tab PO BID Qty: 30 RF: 0 Continued ibuprofen [Motrin IB] 200 mg Tablet 400 mg PO Q6H PRN (Reason: Pain) RF: 0 Discharge Orders: Discharge Order (Routine); Ordered 10/14/19 Ordered By: Wong Nelson/Other Patient Handouts: Diet Low Residue Admission Data Admit Date/Time: 10/11/19 00:34 Attending Provider: Wong Palacios Admit Provider: Samuel Montiel Primary Care Provider: PCP,NO Other Providers: Jed Ascencio ; Samuel Montiel Other Interventions: Discharge Summary Assessment (RN) Last Done: 10/14/19 11:37 DC Date/Time DO NOT enter until pt leaves facility: 10/14/19 14:17
== END 2019-10-14 14:17 | disposition home or self-care (01) | DRG 392 ==
LOC: ED 21:08 → 3E 10-11 00:34